=== PATIENT | female | born 1970 ===

== ENCOUNTER 2018-07-17 05:53 | Observation (INO) | payer SELFPAY ==
[2018-07-09 12:37] VITALS: BMI 32.5
--- NOTE | 2018-07-17 07:04 | CP.SDSHP ---
Same Day Surgery H & P - History Proposed Procedure: Left breast modified radical mastectomy Pre-Op Diagnosis: left breast infiltrating ductal carcinoma - Allergies Allergies: Allergies No Known Allergies Allergy (Verified 07/17/18 06:30) - Physical Exam Vital Signs: Vital Signs 07/17/18 07/17/18 06:37 06:43 Temperature 97.8 F Pulse Rate 71 71 Respiratory 18 Rate Blood Pressure 126/81 O2 Sat by Pulse 99 Oximetry Neuro: WNL Heart: WNL Lungs: WNL GI: WNL - {Optional Preform as Required} Breast: Other (L breast mass) Abdomen: WNL - Impression Impression: 48F ER+/IN+ Her-2neu (-) left breast infiltrating ductal carcinoma - Date & Time Date: 07/17/18 Time: 06:30 Short Stay Discharge - Short Stay Discharge Admitting Diagnosis/Reason for Visit: C50.9 Disposition: HOME/ ROUTINE Referrals: Ted Hunter MD [Primary Care Provider] -
[2018-07-17] MEDS ORDERED: Lactated Ringer's 1,000 ML IV ONE ×2 (07:06→09:55)
[2018-07-17] MEDS ORDERED: Midazolam 2 MG/2 ML VIAL ONE (07:40)
[2018-07-17] MEDS ORDERED: Propofol 10 mg/ml Inj (20 ML) ONE (07:40)
[2018-07-17] MEDS ORDERED: Succinylcholine Chloride 20 mg/ml Syr (5 ml) IV ONE (07:42)
[2018-07-17] MEDS ORDERED: Lidocaine 4% (Laryng-O-Jet) Kit MM ONE (07:52)
[2018-07-17] MEDS ORDERED: Rocuronium 10 mg/ml (5 ml) ONE (08:07)
[2018-07-17] MEDS ORDERED: Desflurane Inhalation Anesthetic Liq (240 ml) ONE (08:15)
[2018-07-17] MEDS ORDERED: Dexamethasone 4 mg/1 ml ONE (08:19)
[2018-07-17] MEDS ORDERED: ceFAZolin 2 GM in Sodium Chloride 0.9% 100 ML IVPB ONE (08:33)
[2018-07-17] MEDS ORDERED: Neostigmine 1:1000 (1 mg/ml) Inj ONE (09:21)
[2018-07-17] MEDS ORDERED: Esmolol 100 mg/10ml Inj IV ONE (09:31)
--- NOTE | 2018-07-17 09:51 | PCM.SURG1 ---
Surgeon's Initial Post Op Note - Surgeon's Notes Surgeon: Rodo Richardson MD Digital Press Operator: DO Mark. DO Juan C Pre-Operative Diagnosis: Left breast infiltrative ductal carcinoma Operative Findings: left breast mass, lymph nodes Post-Operative Diagnosis: Left breast infiltrative ductal carcinoma Operation Performed: Left Modified radical mastectomy Specimen/Specimens Removed: left breast, lymph nodes Estimated Blood Loss: EBL {In ML}: 10 Date of Surgery/Procedure: 07/17/18 Time of Surgery/Procedure: 09:51
[2018-07-17] MEDS ORDERED: HYDROmorphone 0.5 mg/0.5 ml ISec ONE (09:53)
[2018-07-17] MEDS: HYDROmorphone 0.5 mg/0.5 ml ISec IVP PRN ×4 (09:53→10:15)
[2018-07-17] MEDS: Sodium Chloride 0.9% 1,000 ML IV SCH ×3 (10:33→21:42)
[2018-07-18] MEDS ORDERED: Sodium Chloride 0.9% 500 ML IV ONE (06:47)
[2018-07-18 06:49] LABS: HEMOGLOBIN 9.4 g/dL (12.0-16.0); MEAN CELL VOLUME 76.1 fl (81.0-99.0); MEAN CORPUSCULAR HEMOGLOBIN 24.6 pg (27.0-31.0); MEAN CORPUSCULAR HGB CONC 32.3 g/dL (33.0-37.0); RBC 3.83 Mil/uL (3.80-5.20); RED CELL DISTRIBUTION WIDTH 22.3 % (11.5-14.5); WHITE BLOOD COUNT 8.5 K/uL (4.8-10.8)
[2018-07-18 07:15] LABS: BLOOD UREA NITROGEN 9 mg/dl (7-17); CALCIUM 7.9 mg/dL (8.4-10.2); GFR NON-AFRICAN AMERICAN > 60
--- NOTE | 2018-07-18 07:49 | CP.PCM.PN ---
Subjective - Date & Time of Evaluation Date of Evaluation: 07/18/18 Time of Evaluation: 07:47 - Subjective Subjective: SURGERY NOTE FOR DR. MONTOYA 48F seen and examined at bedside. Mild hypotension overnight responsive to fluid bolus. This AM denies pain, feels well. Drain 130cc serosangiunous since OR. Objective - Vital Signs/Intake and Output Vital Signs (last 24 hours): Temp Pulse Resp BP Pulse Ox 98.3 F 72 20 107/54 L 97 07/18/18 05:00 07/18/18 05:00 07/18/18 05:00 07/18/18 05:00 07/18/18 00:00 Intake and Output: 07/18/18 07/18/18 06:59 18:59 Intake Total 3260 Output Total 792 Balance 2468 - Medications Medications: Current Medications Acetaminophen (Tylenol 325mg Tab) 650 mg PO Q6 [facility] Last Admin: 07/18/18 04:52 Dose: 650 mg Hydromorphone HCl (Dilaudid) 1 mg IVP Q4 PRN PRN Reason: Pain, severe (8-10) Sodium Chloride (Sodium Chloride 0.9%) 1,000 mls @ 100 mls/hr IV .Q10H [facility] Last Admin: 07/17/18 21:42 Dose: 100 mls/hr Ondansetron HCl (Zofran Inj) 4 mg IVP Q6 PRN PRN Reason: Nausea/Vomiting - Labs Labs: 07/18/18 06:00 07/18/18 06:00 - Constitutional Appears: Non-toxic, No Acute Distress - Respiratory Exam Respiratory Exam: Clear to Ausculation Bilateral, NORMAL BREATHING PATTERN - Cardiovascular Exam Cardiovascular Exam: REGULAR RHYTHM, +S1, +S2 - GI/Abdominal Exam GI & Abdominal Exam: Soft. absent: Distended, Firm, Guarding, Rigid, Tenderness, Rebound - Extremities Exam Extremities Exam: absent: Pedal Edema, Tenderness - Neurological Exam Neurological Exam: Alert, Awake - Skin Skin Exam: Dry, Intact, Normal Color, Warm Additional comments: left breast dressing CDI, Drain serosanguinous output with 130cc since OR Assessment and Plan - Assessment and Plan (Free Text) Assessment: 48F s/p left mastectomy POD#1 Plan: - Monitor dressing - Drain output - Possible DC Further recs discuss with Dr. Dylan Flores, PGY3
--- NOTE | 2018-07-18 08:20 | CP.PCM.DIS ---
Provider - Provider Date of Admission: 07/17/18 09:52 Attending physician: Rodo Richardson MD Primary care physician: Ted Hunter MD Consults: 07/17/18 09:58 Hematology Oncology Consult Routine Comment: Consulting Provider: Josesito Lopez Consulting Physician: Josesito Lopez Reason for Consult: left breat infiltrative ductal ca, s/p Mastectomy Time Spent in preparation of Discharge (in minutes): 40 Hospital Course - Lab Results Lab Results: Most Recent Lab Values WBC 8.5 K/uL (4.8-10.8) 07/18/18 06:00 RBC 3.83 Mil/uL (3.80-5.20) 07/18/18 06:00 Hgb 9.4 g/dL (12.0-16.0) L D 07/18/18 06:00 Hct 29.2 % (34.0-47.0) L 07/18/18 06:00 MCV 76.1 fl (81.0-99.0) L 07/18/18 06:00 MCH 24.6 pg (27.0-31.0) L 07/18/18 06:00 MCHC 32.3 g/dL (33.0-37.0) L 07/18/18 06:00 RDW 22.3 % (11.5-14.5) H 07/18/18 06:00 Plt Count 216 K/uL (130-400) 07/18/18 06:00 Sodium 139 mmol/l (132-148) 07/18/18 06:00 Potassium 3.9 MMOL/L (3.6-5.0) 07/18/18 06:00 Chloride 109 mmol/L (98-107) H 07/18/18 06:00 Carbon Dioxide 24 mmol/L (22-30) 07/18/18 06:00 Anion Gap 10 (10-20) 07/18/18 06:00 BUN 9 mg/dl (7-17) 07/18/18 06:00 Creatinine 0.6 mg/dl (0.7-1.2) L 07/18/18 06:00 Est GFR ( Amer) > 60 07/18/18 06:00 Est GFR (Non-Af Amer) > 60 07/18/18 06:00 Random Glucose 106 mg/dL (65-105) H 07/18/18 06:00 Calcium 7.9 mg/dL (8.4-10.2) L 07/18/18 06:00 - Hospital Course Hospital Course: 48F presents as same day surgery for left breast mastectomy, after having an outpatient biopsy of left breast mass return with results of infiltrating ductal carcinoma. She tolerated the procedure well and has a drain in place. Overnight post op patient had mild hypotensive episode which responded well to fluids. This AM she is doing well, denies pain and is having serosang fluid output from drain. Discharge Exam - Head Exam Head Exam: ATRAUMATIC - Respiratory Exam Respiratory Exam: Clear to PA & Lateral, NORMAL BREATHING PATTERN - Cardiovascular Exam Cardiovascular Exam: REGULAR RHYTHM, +S1, +S2 - GI/Abdominal Exam GI & Abdominal Exam: Soft. absent: Distended, Firm, Guarding, Rebound, Rigid, Tenderness - Neurological Exam Neurological exam: Alert, Oriented x3 - Psychiatric Exam Psychiatric exam: Normal Affect, Normal Mood - Skin Skin Exam: Dry, Intact, Normal Color, Warm - Additional Findings Additional findings: left breast s/p mastectomy, POD#1, Incision CDI, Drain output sanguinous 130cc since OR Discharge Plan - Follow Up Plan Condition: GOOD Disposition: HOME/ ROUTINE Instructions: Mastectomy (DC) Additional Instructions: 1) Please follow up in 2 weeks 2) May shower but do not bath 3) Take medications as directed 4) Daily wound care, empty drain daily or once full 5) Will DC drain and venita in office 6) Return to ED for any emergencies. Referrals: Ted Hunter MD [Primary Care Provider] - Josesito Lopez MD [Staff Provider] - Rodo Richardson MD [Staff Provider] -
[2018-07-18] MEDS: Sodium Chloride 0.9% 1,000 ML IV SCH (08:24)
[2018-07-18 09:10] VITALS: BP 121/63; PULSE 71; RESP 18; TEMP 97; O2SAT 98
--- NOTE | 2018-07-21 20:16 | OP ---
PROCEDURE DATE: 07/17/2018 SURGEON: Rodo Richardson MD PATTERN REPAIR PERSON: Ramone Flores DO and Flaquito Irizarry DO ANESTHESIA General. ANESTHESIOLOGIST: Emanuel Johnson PREOPERATIVE DIAGNOSIS: Left breast infiltrating ductal carcinoma. POSTOPERATIVE DIAGNOSIS: Left breast infiltrating ductal carcinoma. PROCEDURE: Left modified radical mastectomy. DESCRIPTION OF OPERATION: With the patient in the supine position under adequate general anesthesia, the left upper chest and axilla and upper arm were prepped and draped in the usual sterile manner. The patient had a palpable mass located deep to the areolar central portion of the left breast and an elliptical incision was mapped out to include the nipple-areolar complex and the skin overlying the area of the mass. The upper incision was made and a skin flap was raised using primarily cautery down up to the chest wall. Similarly an inferior incision was made and again the skin flap was raised down to the chest wall including the inferior ridge of breast tissue and in both areas the flaps were noted to be well away from the area of the primary tumor. The breast tissue was then dissected off the pectoral fascia beginning at the lower outer quadrant to preserve the serratus musculature and when this had been completely freed beginning medially to remove the tissue off the pectoral fascia. Although there was no visible tumor at the deep margin, there appeared to be some compressive appearance to the fascia deep to the primary tumor and separate specimen of deep margin was excised and sent separately in case there was tumor noted at the deep margin of the main specimen. The dissection was completed up towards the axilla. The axillary fascia was then incised and after visualization of the axillary vein, fatty axillary tissue which appeared to contain a number of lymph nodes of up to 1 cm diameter was dissected downward from the area of the vein. Attachments were hemoclipped and divided and the axillary contents were removed in continuity with the breast. The operative site was examined for hemostasis and irrigated with sterile water. A 19-Upper [place]bian [place] drain was placed beneath the chest wall flaps and extending into the axilla and the flaps were then approximated with tenacula and noted to come together with minimal tension. The incision was then closed with venita. Dry sterile dressing was applied. The patient tolerated the procedure well and transferred to the recovery room in stable condition. Estimated blood loss for the procedure was 100 mL. Rodo Richardson MD [facility] # [id number] [place]
== END 2018-07-18 12:00 | disposition home or self-care (01) ==
LOC: H.OPSURG 05:53 → INTOOBSV 09:52 → H.PEDS 09:52
PROVIDERS: ADMIT Specialist; ATTEND Specialist
DX: C50.912 Malignant neoplasm of unspecified site of left female breast (principal); I95.81 Postprocedural hypotension
CPT/HCPCS: 19307; 36415; 80048; 85027; 88307; G0378; J0690; J1100; J1170; J1885; J2001; J2250; J2405; J2704; J2710; J2765; J3010; J7030; J7040; J7120